=== PATIENT | female | born 1935 | race Caucasian/White ===

== ENCOUNTER 2016-09-13 22:25 | Inpatient (IN) | payer OTHER, MEDICARE ==
[~2016-09-13] VITALS: Ht 170.2 cm; Wt 91.6 kg
[~2016-09-13 22:25] MED LIST: TAB-TAB PO
[2016-09-13 22:45] VITALS: BP 185/97; PULSE 97; RESP 18; TEMP 98.9; O2SAT 97
[2016-09-13] MEDS ORDERED: SODIUM CHLORIDE 0.9% FLUSH 5 ML FLUSH IVF PRN (22:45)
--- NOTE | 2016-09-13 22:45 | PD ---
Physical Exam Time Seen by Provider: 22:41 Narrative I was asked to perform a laceration repair to this patient's scalp. For further details regarding the patient's visit please see the physician's documentation. MDM Supervised Visit with EJ: No Procedures Procedure Narrative LACERATION LOCATION: mid scalp LENGTH: 1 cm NUMBER OF STITCHES/CHAVA: 1 staple REPAIR: The wound was copiously irrigated and explored without evidence of foreign body, tendon injury or neurovascular injury. The wound was closed using 1 staple. This was a single layer repair. A sterile dressing was applied. The patient was advised to keep the dressing clean and dry. Patient tolerated the procedure well. Alexandrea Perkins Sep 13, 2016 22:45
[2016-09-13] MEDS ORDERED: MULT1TAB84 PO (22:50)
[2016-09-13 23:02] VITALS: RESP 18; O2SAT 91
--- NOTE | 2016-09-13 23:25 | PD ---
HPI Chief Complaint: Fall Time Seen by Provider: 22:40 Travel History International Travel<30 days: No Contact w/Intl Traveler<30days: No Traveled to known affect area: No History of Present Illness HPI 81-year-old female came to the emergency room brought by EMS after a fall and unable to ambulate. Patient has a med alert bracelet. She pushed the button after she fell. However patient does not remember how she fell. She has been drinking beer. As per EMS when they arrived they were unable to open her door. They had to enter the house through the window. They found the patient in the bathroom on the floor covered in feces. They put her on the stretcher and brought her to the emergency room. She was complaining of left wrist pain and they noticed a deformity. They splinted the wrist. She also had head injury and some dried blood in her hair. Patient lives alone at home. She has been complaining of the wrist hurting. She does not recall her last tetanus shot. [facility] Past Medical History Narrative Medical List of her past medical history as reviewed from the nursing note. Heart Rhythm Problems: No Cardiac Catheterization: No Cardiovascular Problems: No High Cholesterol: No Congestive Heart Failure: No Diabetes: No Diminished Hearing: No Hypertension: Yes ?: Not Tubal Ligation: Yes Past Surgical History Cholecystectomy: Yes Coronary Artery Bypass Graft: No Hysterectomy: Yes Family History Family Myocardial Infarction: Yes Social History Alcohol Use: Yes (1 beer per day) Tobacco Use: No (never) Substance Use: No Allergies-Medications (Allergen,Severity, Reaction): Coded Allergies: No Known Allergies (Verified , 09/13/16) Comments No known drug allergies. Reported Meds & Prescriptions Reported Meds & Active Scripts Active [place] (Hydrocodone-Acetaminophen) 5-325 mg Tab 1-2 Tab PO Q4H PRN Reported Multivitamin Adults (Multiple Vitamins W/ Minerals) 1 Tab 1 Tab PO DAILY Narrative Medication List of her home medications reviewed from the nursing note. Review of Systems Except as stated in HPI: all other systems reviewed are Neg Physical Exam Narrative GENERAL: Elderly, disheveled, obese, in moderate distress, extremely poor skin hygiene, covered in dry feces. SKIN: Warm and dry. HEAD: Atraumatic. Normocephalic. Scalp laceration 1 cm on the top of her head. EYES: Pupils equal and round. No scleral icterus. No injection or drainage. ENT: No nasal bleeding or discharge. Mucous membranes pink and moist. NECK: Trachea midline. No JVD. Patient has a c-collar. CARDIOVASCULAR: Regular rate and rhythm. No murmur appreciated. RESPIRATORY: No accessory muscle use. Clear to auscultation. Breath sounds equal bilaterally. GASTROINTESTINAL: Abdomen soft, non-tender, nondistended. Hepatic and splenic margins not palpable. MUSCULOSKELETAL: Left wrist deformity with hematoma. No clubbing. No cyanosis. No edema. Distal pulses intact NEUROLOGICAL: Awake and alert. No obvious cranial nerve deficits. Motor grossly within normal limits. Normal speech. PSYCHIATRIC: Appropriate mood and affect; insight and judgment normal. Data Data Last Documented VS Vital Signs Date Time Temp Pulse Resp B/P Pulse Ox O2 Delivery O2 Flow Rate FiO2 09/13/16 23:02 18 91 Room Air 09/13/16 22:45 98.9 97 185/97 Orders Electrocardiogram (09/13/16 22:40) Alcohol (Ethanol) (09/13/16 22:40) Ammonia (09/13/16 22:40) Complete Blood Count With Diff (09/13/16 22:40) Comprehensive Metabolic Panel (09/13/16 22:40) Creatine Kinase (Cpk) (09/13/16 22:40) Drug Screen, Random Urine (09/13/16 22:40) Prothrombin Time / Inr (Pt) (09/13/16 22:40) Troponin I (09/13/16 22:40) Thyroid Stimulating Hormone (09/13/16 22:40) Urinalysis - C+S If Indicated (09/13/16 22:40) Chest, Single Ap (09/13/16 22:40) Ct Brain W/O Iv Contrast(Rout) (09/13/16 22:40) Blood Glucose (09/13/16 22:40) Ecg Monitoring (09/13/16 22:40) Iv Access Insert/Monitor (09/13/16 22:40) Oximetry (09/13/16 22:40) Sodium Chloride 0.9% Flush (Ns Flush) (09/13/16 22:45) Forearm (2vws) (09/13/16 ) Wrist, Complete ([id number]) (09/13/16 ) Ct Cerv Spine W/O Contrast (09/13/16 ) Urine Culture (09/13/16 23:10) Morphine Inj (Morphine Inj) (09/14/16 00:45) Ondansetron Inj (Zofran Inj) (09/14/16 00:45) Tetanus/Diphtheria Tox Adult (Tetanus/Di (09/14/16 00:45) Splinting (09/14/16 ) Nitrofurantoin Monohyd Macrocr (Macrobid (09/14/16 00:45) NPO (09/14/16 01:07) Ceftriaxone Inj (Rocephin Inj) (09/14/16 01:15) Admit To Inpatient (09/14/16 ) Vital Signs (Adult) Q4H (09/14/16 01:03) Activity Oob With Assistance (09/14/16 01:03) Diet Npo (09/14/16 Breakfast) Sodium Chlor 0.9% 1000 Ml Inj (Ns 1000 M (09/14/16 01:03) Sodium Chloride 0.9% Flush (Ns Flush) (09/14/16 01:15) Sodium Chloride 0.9% Flush (Ns Flush) (09/14/16 09:00) Ondansetron Inj (Zofran Inj) (09/14/16 01:15) Bisacodyl Supp (Dulcolax Supp) (09/14/16 01:15) Comprehensive Metabolic Panel (09/15/16 06:00) Complete Blood Count With Diff (09/15/16 06:00) Case Management Consult (09/14/16 01:03) Scd Bilateral/Knee High CHAIM.BID (09/14/16 01:03) [place] Bilateral/Knee High CHAIM.QSHIFT (09/14/16 01:03) Acetaminophen (Tylenol) (09/14/16 01:15) Acetamin-Hydrocod 325-5 Mg ([place] 5-325 (09/14/16 01:15) Morphine Inj (Morphine Inj) (09/14/16 01:15) Inpatient Certification (09/14/16 ) Admit Order (Ed Use Only) (09/14/16 01:08) Lorazepam Inj (Ativan Inj) (09/14/16 01:15) Consult Orthopedic (09/14/16 ) Labs Laboratory Tests Test 2/10/2509/13/16 09/13/16 23:10 23:11 23:13 Urine Color LIGHT-YELLOW Urine Turbidity HAZY Urine pH 5.5 Urine Specific [place] 1.006 Urine Protein TRACE mg/dL Urine Glucose (UA) NEG mg/dL Urine Ketones NEG mg/dL Urine Occult Blood SMALL Urine Nitrite NEG Urine Bilirubin NEG Urine Urobilinogen LESS THAN 2.0 MG/DL Urine Leukocyte Esterase SMALL Urine WBC 3 /hpf Urine Squamous Epithelial 1 /hpf Cells Urine Amorphous Sediment OCC Urine Bacteria FEW /hpf Microscopic Urinalysis Comment CATH-CULTURE IND Urine Opiates Screen NEG Urine Barbiturates Screen NEG Urine Amphetamines Screen NEG Urine Benzodiazepines Screen NEG Urine Cocaine Screen NEG Urine Cannabinoids Screen NEG Prothrombin Time 10.8 SEC Prothromb Time International 1.0 RATIO Ratio White Blood Count 8.9 TH/MM3 Red Blood Count 3.81 MIL/MM3 Hemoglobin 12.5 GM/DL Hematocrit 36.7 % Mean Corpuscular Volume 96.4 FL Mean Corpuscular Hemoglobin 32.9 PG Mean Corpuscular Hemoglobin 34.1 % Concent Red Cell Distribution Width 13.5 % Platelet Count 138 TH/MM3 Mean Platelet Volume 8.7 FL Neutrophils (%) (Auto) 89.1 % Lymphocytes (%) (Auto) 5.8 % Monocytes (%) (Auto) 4.8 % Eosinophils (%) (Auto) 0.1 % Basophils (%) (Auto) 0.2 % Neutrophils # (Auto) 7.9 TH/MM3 Lymphocytes # (Auto) 0.5 TH/MM3 Monocytes # (Auto) 0.4 TH/MM3 Eosinophils # (Auto) 0.0 TH/MM3 Basophils # (Auto) 0.0 TH/MM3 CBC Comment DIFF FINAL Differential Comment Sodium Level 139 MEQ/L Potassium Level 3.5 MEQ/L Chloride Level 107 MEQ/L Carbon Dioxide Level 21.7 MEQ/L Anion Gap 10 MEQ/L Blood Urea Nitrogen 20 MG/DL Creatinine 1.40 MG/DL Estimat Glomerular Filtration 36 ML/MIN Rate Random Glucose 97 MG/DL Calcium Level 8.0 MG/DL Total Bilirubin 0.4 MG/DL Aspartate Amino Transf 25 U/L (AST/SGOT) Alanine Aminotransferase 22 U/L (ALT/SGPT) Alkaline Phosphatase 115 U/L Total Creatine Kinase 63 U/L Troponin I LESS THAN 0.02 NG/ML Total Protein 6.5 GM/DL Albumin 3.5 GM/DL Thyroid Stimulating Hormone 2.690 uIU/ML 3rd Gen Ethyl Alcohol Level 76 MG/DL Ammonia 13 MCMOL/L [facility] Medical Decision Making Medical Screen Exam Complete: Yes Emergency Medical Condition: Yes Medical Record Reviewed: Yes Interpretation(s) Twelve-lead EKG was reviewed by me. Normal sinus rhythm, left axis deviation, possible old inferior PA. Heart rate of 100 bpm. Differential Diagnosis Distal radius ulna fracture, electrolyte abnormalities, intracranial bleed, alcohol intoxication, Narrative Course 1 AM blood test results are back. Patient's alcohol level is high. Rest of the blood test results appear to be within normal limit. UA suggestive of possible UTI. I've given her a dose of Macrobid and tetanus. Head CT is within normal limit. I discussed the case with the hospitalist and expressed to her my concern of admitting this patient since she would require orthopedic surgery for her wrist given the 100% displacement. Also as per the EMS description I have concerns about this patient living on her own. That needs to be looked into as well. I spoke with Dr. Monteiro was top ironer for orthopedics. He wants the patient nothing by mouth so that a surgery can be performed in the morning. The [facility] is putting the splint on the fractured extremity. PA stapled the scalp under my supervision. Please refer to her procedure note. Procedures EKG Prior to Arrival: No Physician Communication Physician Communication Dr. Monteiro Diagnosis Primary Impression: Fall Qualified Code: W19.XXXA - Fall, initial encounter Additional Impressions: Closed fracture distal radius and ulna Qualified Code: S52.502A - Closed fracture distal radius and ulna, left, initial encounter Alcohol intoxication Qualified Code: F10.120 - Alcohol intoxication, uncomplicated UTI (urinary tract infection) Qualified Code: N39.0 - Urinary tract infection with hematuria, site unspecified Head injury Qualified Code: S09.90XA - Head injury, initial encounter Scalp laceration Qualified Code: S01.01XA - Scalp laceration, initial encounter Admitting Information Admitting Physician Requests: Admit Scripts Oxygen tank 1 Ea Tank #1 Liter Parminder.canula Continuous Oxygen Concentrator Portable Gaseous 2 L/min via Nasal Cannula Continuous For 99 months Prov:Aris Menezes MD 09/15/16 Thiamine (Vitamin B-1)100 Mg Ofl615 Mg PO DAILY 30 Days Prov:Aris Menezes MD 09/15/16 Cefuroxime (Ceftin)500 Mg Neg916 Mg PO BID #7 TAB Ref 0 Prov:Aris Menezes MD 09/15/16 Sennosides-Docusate Sodium (Senna Plus 8.6-50 mg)1 Tab Tab1 Tab PO BID #60 TAB Prov:Aris Menezes MD 09/15/16 Hydrocodone-Acetaminophen ([place])5-325 mg Tab1-2 Tab PO Q4H PRN (PAIN) #60 TAB Ref 0 Prov:Sergio Monteiro MD 09/14/16 Roland Braun MD Sep 13, 2016 23:25
[2016-09-13 23:29] LABS: AUTOMATED NEUTROPHIL # 7.9 TH/MM3 (1.8-7.7); BASOPHIL % 0.2 % (0.0-2.0); EOSINOPHIL % 0.1 % (0.0-4.0); HEMATOCRIT 36.7 % (35.0-46.0); HEMO FLAGS DIFF FINAL; LYMPH % 5.8 % (9.0-44.0); LYMPHOCYTE # 0.5 TH/MM3 (1.0-4.8); MEAN CELL VOLUME 96.4 FL (80.0-100.0); MEAN CORPUSCULAR HEMOGLOBIN 32.9 PG (27.0-34.0); MEAN CORPUSCULAR HGB CONC 34.1 % (32.0-36.0); MONO % 4.8 % (0.0-8.0); NEUT % 89.1 % (16.0-70.0); PLATELET COUNT 138 TH/MM3 (150-450); RED BLOOD COUNT 3.81 MIL/MM3 (4.00-5.30); RED CELL DISTRIBUTION WIDTH 13.5 % (11.6-17.2); WHITE BLOOD COUNT 8.9 TH/MM3 (4.0-11.0)
[2016-09-13 23:43] LABS: BACTERIA, URINE FEW /hpf; BLOOD, URINE SMALL (NEG); COMMENT (UR) CATH-CULTURE IND; CULTURE IF INDICATED CATH CULTURE IND; GLUCOSE,URINE NEG (NEG); KETONE, URINE NEG (NEG); NITRITE,URINE NEG (NEG); PH, URINE 5.5 (5.0-8.5); SQUAMOUS EPITHELIAL CELL URINE 1 /hpf (0-5); URINE COLOR LIGHT-YELLOW (YELLW/STRAW)
[2016-09-13 23:45] LABS: PROTHROMBIN TIME - PATIENT 10.8 SEC (9.8-11.6)
[2016-09-13 23:50] LABS: ALT (GPT) 22 U/L (10-53); ANION GAP 10 MEQ/L (5-15); AST (GOT) 25 U/L (15-37); BICARBONATE 21.7 MEQ/L (21.0-32.0); BLOOD UREA NITROGEN 20 MG/DL (7-18); CHLORIDE 107 MEQ/L (98-107); GLOMERULAR FILTRATION RATE 36 ML/MIN (>89); POTASSIUM 3.5 MEQ/L (3.5-5.1); SODIUM (NA) 139 MEQ/L (136-145)
[2016-09-13 23:54] LABS: AMPHETAMINE, URINE NEG (NEG); BARBITURATES, URINE NEG (NEG); COCAINE, URINE NEG (NEG)
[2016-09-14] VITALS (7 sets, daily range): BP systolic 136–187; BP diastolic 63–90; PULSE 79–105; RESP 16–19; TEMP 95.8–99.1; O2SAT 90–99
[2016-09-14] LABS: ALKALINE PHOSPHATASE 115 U/L (45-117); TOTAL BILIRUBIN ADULT 0.4 MG/DL (0.2-1.0)
[2016-09-14 00:02] LABS: CREATINE KINASE 63 U/L (26-192)
--- NOTE | 2016-09-14 00:25 | RADRPT ---
EXAM DATE/TIME: 09/13/2016 23:15 [facility] COMPARISON: CT BRAIN W/O CONTRAST, September 09, 2015, 23:41. INDICATIONS : Trauma; fall. RADIATION DOSE: 36.79 CTDIvol (mGy) MEDICAL HISTORY : None SURGICAL HISTORY : Cholecystectomy. Hysterectomy. ENCOUNTER: Initial ACUITY: 1 day PAIN SCALE: 6/10 LOCATION: cranial TECHNIQUE: Multiple contiguous axial images were obtained of the head. Using automated exposure control and adj ustment of the mA and/or kV according to patient size, radiation dose was kept as low as reasonably a chievable to obtain optimal diagnostic quality images. FINDINGS: CEREBRUM: There is mild cerebral atrophy. Ventricles are normal in size and stable. There is left frontal periv entricular region encephalomalacia along with mild periventricular white matter low attenuation bilat erally. No evidence of midline shift, mass lesion, hemorrhage or acute infarction. No extra-axial f luid collections are seen. POSTERIOR FOSSA: The cerebellum and brainstem are intact. The 4th ventricle is midline. The cerebellopontine angle i s unremarkable. EXTRACRANIAL: Visualized sinuses are clear. Scalp terry are present anteriorly. SKULL: The calvaria is intact. No evidence of skull fracture. CONCLUSION: 1. No acute intracranial abnormality is identified. 2. Stable chronic changes include mild cerebral atrophy and left frontal periventricular white matter encephalomalacia Bret Roblero MD on September 14, 2016 at 0:22 Board Certified Radiologist. This report was verified electronically.
--- NOTE | 2016-09-14 00:40 | RADRPT ---
EXAM DATE/TIME: 09/13/2016 23:36 [facility] COMPARISON: CHEST SINGLE AP, May 31, 2016, 0:23. INDICATIONS : Shortness of breath. MEDICAL HISTORY : Hypertension. Hypercholesterolemia. SURGICAL HISTORY : Cholecystectomy. Tubal ligation. ENCOUNTER: Initial ACUITY: 1 day PAIN SCORE: 0/10 LOCATION: Bilateral chest FINDINGS: Portable AP view of the chest demonstrates a normal-sized cardiac silhouette. No effusion, consolidat ion, or pneumothorax is visualized. The bones and soft tissues demonstrate no acute abnormality. CONCLUSION: No acute cardiopulmonary abnormality is identified. Bret Roblero MD on September 14, 2016 at 0:38 Board Certified Radiologist. This report was verified electronically.
[2016-09-14] MEDS ORDERED: MORPHINE SULFATE 4 MG/ML INJ IV PUSH ONE (00:45)
[2016-09-14] MEDS ORDERED: ONDANSETRON HCL 4 MG/2 ML VIAL IV PUSH ONE (00:45)
[2016-09-14] MEDS ORDERED: TETANUS/DIPHTHERIA TOXOID ADULT 0.5 ML VIAL IM ONE (00:45)
[2016-09-14] MEDS ORDERED: NITROFURANTOIN MONOHYD MACROCR 100 MG CAP PO ONE (00:45)
--- NOTE | 2016-09-14 00:56 | RADRPT ---
EXAM DATE/TIME: 09/13/2016 23:15 [facility] COMPARISON: No previous studies available for comparison. INDICATIONS : Trauma; fall. RADIATION DOSE: 18.10 CTDIvol (mGy) MEDICAL HISTORY : None SURGICAL HISTORY : Cholecystectomy. Hysterectomy. ENCOUNTER: Initial ACUITY: 1 day PAIN SCALE: 5/10 LOCATION: neck TECHNIQUE: Volumetric scanning of the cervical spine was performed. Multiplanar reconstructions in the sagittal, coronal and oblique axial planes were performed. Using automated exposure control and adjustment o f the mA and/or kV according to patient size, radiation dose was kept as low as reasonably achievable to obtain optimal diagnostic quality images. FINDINGS: There is normal sagittal spine alignment of the cervical spine. No anterolisthesis or retrolisthesis is present. The atlantoaxial relationship is within normal limits. There is no prevertebral soft tiss ue swelling present. No fracture or dislocation is identified. There is a small central disc protrusi on at C5-C6. The visualized portions of the posterior fossa, paraspinous soft tissues, and upper lung zones demons trate no acute abnormality. CONCLUSION: 1. No fracture or acute cervical spine abnormality is identified. 2. There is a small central disc protrusion of uncertain chronicity at C5-C6. It is not causing any s ignificant canal stenosis. Bret Roblero MD on September 14, 2016 at 0:51 Board Certified Radiologist. This report was verified electronically.
--- NOTE | 2016-09-14 00:57 | RADRPT ---
EXAM DATE/TIME: 09/13/2016 23:31 [facility] COMPARISON: No previous studies available for comparison. INDICATIONS : Left wrist pain from fall. MEDICAL HISTORY : None. SURGICAL HISTORY : None. ENCOUNTER: Initial ACUITY: 1 day PAIN SCORE: 10/10 LOCATION: Left wrist FINDINGS: 2 views of the left forearm demonstrate under mineralized bones with mildly comminuted transverse fra cture of the distal radial and ulnar metaphyses. There is lateral displacement of the distal fragment s by approximately 1/2 shaft width and there is mild shortening as well. No associated carpal bone fr acture is appreciated. There is adjacent soft tissue swelling. No radiopaque foreign body is identifi ed. CONCLUSION: There are displaced transverse fractures of the distal radius and ulna metaphyses. Bret Roblero MD on September 14, 2016 at 0:55 Board Certified Radiologist. This report was verified electronically.
--- NOTE | 2016-09-14 00:58 | RADRPT ---
EXAM DATE/TIME: 09/13/2016 23:33 [facility] COMPARISON: No previous studies available for comparison. INDICATIONS : Left wrist pain from a fall. MEDICAL HISTORY : Hypercholesterolemia. Hypertension. SURGICAL HISTORY : Cholecystectomy. Tubal ligation. Hysterectomy. ENCOUNTER: Initial ACUITY: 1 day PAIN SCORE: 10/10 LOCATION: Left wrist FINDINGS: 3 views of the left wrist demonstrate under mineralized bones. There are transverse fractures of the distal radius and ulna in the metaphyseal region with approximately 1/2 shaft width of lateral displa cement of the distal fragments. No carpal bone fracture is identified. There is associated soft tissu e swelling. No radiopaque foreign body is seen. CONCLUSION: There are acute transverse displaced fractures of the distal left ulna and radial metaphyses. Bret Roblero MD on September 14, 2016 at 0:56 Board Certified Radiologist. This report was verified electronically.
[2016-09-14] MEDS ORDERED: SODIUM CHLOR 0.9% 1000 ML INJ 1,000 ML IV SCH (01:03)
[2016-09-14] MEDS ORDERED: ACETAMINOPHEN 325 MG TAB PO PRN (01:15)
[2016-09-14] MEDS ORDERED: ACETAMINOPHEN/HYDROcodone 325 MG/5 MG TAB PO PRN ×2 (01:15→10:45)
[2016-09-14] MEDS ORDERED: LORazepam 2 MG/ML VIAL IV PUSH PRN (01:15)
[2016-09-14] MEDS ORDERED: SODIUM CHLORIDE 0.9% FLUSH 5 ML FLUSH FLUSH PRN (01:15)
[2016-09-14] MEDS ORDERED: ONDANSETRON HCL 4 MG/2 ML VIAL IVP PRN ×2 (01:15→10:45)
[2016-09-14] MEDS ORDERED: BISACODYL 10 MG SUPP PR PRN (01:15)
[2016-09-14] MEDS ORDERED: MORPHINE SULFATE 4 MG/ML INJ IV PRN (01:15)
[2016-09-14] MEDS: cefTRIAXone INJ 1,000 MG in SODIUM CHLORIDE 0.9% INJ 100 ML IV SCH (01:33)
[2016-09-14] MEDS ORDERED: METOPROLOL TARTRATE 5 MG/5 ML VIAL IV PUSH ONE (04:30)
--- NOTE | 2016-09-14 05:01 | HHI.HP ---
[facility] Michaela Goldstein MD Admission Diagnosis fall, head injury, distal radius ulna fracture, UTI Diagnoses: (1) Fall Diagnosis: Principal (2) Scalp laceration Diagnosis: Principal (3) Alcohol intoxication Diagnosis: Principal (4) Closed fracture distal radius and ulna Diagnosis: Principal (5) UTI (urinary tract infection) Diagnosis: Principal (6) Renal insufficiency Diagnosis: Principal Travel History International Travel<30 Days: No Contact w/Intl Traveler <30 Da: No Traveled to Known Affected Are: No History of Present Illness This is an 81-year-old female with a PMH of HTN and Hyperlipidemia who was brought to the ER by EMS after fall at home. Pt was apparently in the bathroom at her home and fell between the toilet and the wall, unable to get up. She pressed Medical Alert button at which time EMS was called. On their arrival, pt noted to have deformity of left wrist, s/p splint. On arrival to ER, BP 185/ 97, HR 97, O2 sat 97% on RA, Afebrile. CBC unremarkable except for platelets 138, previously 129 on 09/11/15. Creatinine 1.40, previously 1.49 on 05/31/16. Troponin negative. Alcohol 76. Urine Drug Screen negative. UA positive for UTI. CXR with no acute findings. CT Head with no acute findings. CT C-spine negative for fracture. X-ray Radius/Ulna w/ displaced transverse fractures of the distal radius ulna metaphyses. Noted to have scalp laceration, s/p repair in ER. Ortho consulted by ER physician for further evaluation. S/p Nitrofurantoin for UTI in ER. Review of Systems Other ROS: 14 point review of systems otherwise negative. Past Family Social History Past Medical History PMH: HTN and Hyperlipidemia Past Surgical History PAST SURGICAL HISTORY: Cholecystectomy, Hysterectomy Allergies: Coded Allergies: No Known Allergies (Verified , 09/13/16) Family History PAST FAMILY HISTORY: Reviewed, positive for CAD. Social History PAST SOCIAL HISTORY: Reports drinking one beer daily. Negative for tobacco or drugs. Physical Exam Vital Signs Vital Signs Date Time Temp Pulse Resp B/P Pulse Ox O2 Delivery O2 Flow Rate FiO2 09/14/16 02:00 94 16 174/88 96 Nasal Cannula 2 09/13/16 23:02 18 91 Room Air 09/13/16 22:45 98.9 97 18 185/97 97 Physical Exam PE: GENERAL: Elderly white female in no acute distress, disheveled, unkept. HEENT: PERRLA, EOMI. No scleral icterus or conjunctival pallor. No lid lag or facial droop. Scalp laceration CARDIOVASCULAR: Regular rate and rhythm. No obvious murmurs to auscultation. No chest tenderness to palpation. RESPIRATORY: No obvious rhonchi or wheezing. Clear to auscultation. Breath sounds equal bilaterally. GASTROINTESTINAL: Abdomen soft, non-tender, nondistended. BS normal. MUSCULOSKELETAL: Extremities without clubbing, cyanosis, or edema. No obvious deformities. Left wrist splint. Pulses intact. NEUROLOGICAL: Awake, alert. No focal neurologic deficits. Moving both upper and lower extremities spontaneously. Laboratory Laboratory Tests Test 09/13/16 09/13/16 09/13/16 23:10 23:11 23:13 Urine Color LIGHT-YELLOW Urine Turbidity HAZY Urine pH 5.5 Urine Specific [place] 1.006 Urine Protein TRACE Urine Glucose (UA) NEG Urine Ketones NEG Urine Occult Blood SMALL Urine Nitrite NEG Urine Bilirubin NEG Urine Urobilinogen LESS THAN 2.0 Urine Leukocyte Esterase SMALL Urine WBC 3 Urine Squamous Epithelial 1 Cells Urine Amorphous Sediment OCC Urine Bacteria FEW Microscopic Urinalysis Comment CATH-CULTURE IND Urine Opiates Screen NEG Urine Barbiturates Screen NEG Urine Amphetamines Screen NEG Urine Benzodiazepines Screen NEG Urine Cocaine Screen NEG Urine Cannabinoids Screen NEG White Blood Count 8.9 Red Blood Count 3.81 Hemoglobin 12.5 Hematocrit 36.7 Mean Corpuscular Volume 96.4 Mean Corpuscular Hemoglobin 32.9 Mean Corpuscular Hemoglobin 34.1 Concent Red Cell Distribution Width 13.5 Platelet Count 138 Mean Platelet Volume 8.7 Neutrophils (%) (Auto) 89.1 Lymphocytes (%) (Auto) 5.8 Monocytes (%) (Auto) 4.8 Eosinophils (%) (Auto) 0.1 Basophils (%) (Auto) 0.2 Neutrophils # (Auto) 7.9 Lymphocytes # (Auto) 0.5 Monocytes # (Auto) 0.4 Eosinophils # (Auto) 0.0 Basophils # (Auto) 0.0 CBC Comment DIFF FINAL Differential Comment Prothrombin Time 10.8 Prothromb Time International 1.0 Ratio Sodium Level 139 Potassium Level 3.5 Chloride Level 107 Carbon Dioxide Level 21.7 Anion Gap 10 Blood Urea Nitrogen 20 Creatinine 1.40 Estimat Glomerular Filtration 36 Rate Random Glucose 97 Calcium Level 8.0 Total Bilirubin 0.4 Aspartate Amino Transf 25 (AST/SGOT) Alanine Aminotransferase 22 (ALT/SGPT) Alkaline Phosphatase 115 Total Creatine Kinase 63 Troponin I LESS THAN 0.02 Total Protein 6.5 Albumin 3.5 Thyroid Stimulating Hormone 2.690 3rd Gen Ethyl Alcohol Level 76 Ammonia 13 Date/Time Procedure Status Source Growth 09/13/16 23:10 Urine Culture Received Urine Catheterized Urine Pending Result Diagram: 09/13/16231009/13/162310 Assessment and Plan Problem List: (1) Fall ICD Code: W19.XXXA Status: Acute (2) Scalp laceration ICD Code: S01.01XA Status: Acute (3) Closed fracture distal radius and ulna ICD Code: S52.609A Status: Acute (4) Alcohol intoxication ICD Code: F10.129 Status: Acute (5) Renal insufficiency ICD Code: N28.9 Status: Chronic (6) UTI (urinary tract infection) ICD Code: N39.0 Status: Acute Assessment and Plan A/P: 1. Fall: s/p mechanical fall at home in bathroom, no LOC, +head trauma. CT Head w/ no acute findings, CT C-Spine w/ no acute fracture, images reviewed by me. 2. Left Wrist Fx: +left wrist deformity, s/p splint by EMS, Left Wrist X-ray w / displaced transverse fractures of distal radius and ulnar metaphysis. Ortho consult placed by ER physician, NPO, IVF, analgesics/antiemetics. 3. Alcohol Intoxication: Alcohol level 76. Drinks 1 beer/day. IVF for hydration, Ativan prn. 4. Renal Insufficiency: Chronic. Stable. Creatinine 1.40, previously 1.49 on 05/31/16. IVF, repeat labs in am. 5. UTI: U/a w/ UTI. S/p Nitrofurantoin PO in ER, will continue w/ Rocephin IV. IVF. 6. DVT Prophylaxis: SCD/Teds. Anticoagulation post op per Ortho. 7. Social work for d/c planning as needed. 8. Case discussed w/ ER physician at length. Physician Certification 2 Midnight Certification Type: Admission for Inpatient Services Order for Inpatient Services The services are ordered in accordance with Medicare regulations or non- Medicare payer requirements, as applicable. In the case of services not specified as inpatient-only, they are appropriately provided as inpatient services in accordance with the 2-midnight benchmark. Estimated LOS (days): 2 days is the estimated time the patient will need to remain in the hospital, assuming treatment plan goals are met and no additional complications. Post-Hospital Plan: Not yet determined Problem Qualifiers (1) Fall: Qualified Code: W19.XXXA - Fall, initial encounter (2) Scalp laceration: Qualified Code: S01.01XA - Scalp laceration, initial encounter (3) Alcohol intoxication: Qualified Code: F10.120 - Alcohol intoxication, uncomplicated (4) Closed fracture distal radius and ulna: Qualified Code: S52.502A - Closed fracture distal radius and ulna, left, initial encounter (5) UTI (urinary tract infection): Qualified Code: N39.0 - Urinary tract infection with hematuria, site unspecified Tory Cortes MD Sep 14, 2016 05:01
[2016-09-14] MEDS ORDERED: INSULIN HUMAN REGULAR 1,000 UNITS/10 ML VIAL SQ PRN (08:45)
[2016-09-14] MEDS ORDERED: LACTATED RINGER'S 1000 ML IV SCH (08:45)
[2016-09-14] MEDS ORDERED: METOPROLOL TARTRATE 25 MG TAB PO PRN (08:45)
[2016-09-14] MEDS: SODIUM CHLORID 0.9% 500 ML IV SCH (08:45)
[2016-09-14] MEDS ORDERED: SODIUM CHLORIDE 0.9% FLUSH 5 ML FLUSH FLUSH SCH (09:00)
--- NOTE | 2016-09-14 09:05 | MB ---
cc: ALEJANDRO VASQUEZ DATE OF CONSULTATION: 09/14/2016 REASON FOR CONSULTATION Left wrist fracture. HISTORY OF PRESENT ILLNESS The patient is an 81-year-old female who presented to [facility] after having a fall at home. The patient was in her bathroom. She fell between the toilet and a wall. She was unable to get up. The patient was brought in by EMS given the nature of this. The patient upon arrival was found to have significantly displaced distal radius and distal ulnar fracture. The ER physician contacted me in the middle of the night. They said they were concerned about doing a closed reduction on the wrist. The patient was admitted for urgent management of this condition. The patient denies any numbness or tingling about the left upper extremity. She denies any problems with the wrist in the past. She had been splinted. PAST MEDICAL HISTORY 1. Hypertension. 2. Hyperlipidemia. REVIEW OF SYSTEMS A 12-point review of systems is negative except as noted in the history of present illness. FAMILY HISTORY Noncontributory. SOCIAL HISTORY 1. Cholecystectomy. 2. Hysterectomy. ALLERGIES No known drug allergies. PHYSICAL EXAMINATION VITAL SIGNS: Temperature 98.9, pulse 79, blood pressure 159/85. GENERAL: She is awake, alert and oriented x3. She has normal insight, affect and judgment. HEAD: The patient's head is atraumatic. Oropharynx is moist. Extraocular muscles are intact. NECK: Supple. HEART: Regular rate and rhythm. LUNGS: Clear to auscultation bilaterally. ABDOMEN: Soft, nontender, nondistended. BACK: No CVA tenderness. EXTREMITIES: The left upper extremity is currently splinted. She moves the fingers well. She has brisk capillary refill distally. The right upper extremity has good active range of motion of the shoulder, elbow and wrist. The bilateral lower extremities show no tenderness about the knees or the ankles. She has no wounds about the bilateral upper extremities. There is no bloody drainage on the left splint. LABORATORY Laboratory studies reviewed show a white cell count of 8.9, hematocrit 36.7, platelets 138. INR is 1.0. Creatinine 1.40. Urine shows some occult blood and small leukocyte esterase. Toxicology is negative. Ethyl alcohol was 76. IMAGING X-ray report and images reviewed, shows the patient has a comminuted left distal radius fracture which is extraarticular shortened, angulated and displaced. There is also a distal ulnar shaft fracture which is also comminuted and displaced to a significant degree. DECISION-MAKING Left distal radius fracture and distal ulnar shaft fracture angulated, displaced and comminuted: We discussed diagnosis in detail. This is a complex situation as nonoperative management would likely lead to significant dysfunction of the left arm and significant chronic deformity. She also may have chronic pain and/or weakness of the left wrist if left with nonoperative management. We discussed the option of surgical management for open reduction, internal fixation with plates and screws. This would be of the distal radius, possibly even the distal ulna. She may require both bones to fixed. It is possible we might be able to fix the distal radius and just perform a closed reduction on the distal ulna. We discussed the risks associated with surgery which include injury to nerves, blood vessels, bleeding, infection, failure of hardware, need for re-operation, continued pain, loss of range of motion in associated joints, DVT, pulmonary embolus, pneumonia and . The patient wants to move forward with surgical management for the left wrist. All questions have been answered. MD FOZIA Gordon/THEODORE /8:15 AM /8:53 AM
[2016-09-14] MEDS ORDERED: VANCOMYCIN HCL 1000 MG VIAL ONE (09:55)
[2016-09-14] MEDS ORDERED: GENTAMICIN SULFATE 80 MG/2 ML VIAL ONE ×2 (09:55)
[2016-09-14] MEDS ORDERED: ceFAZolin 2 GM PREMIX 50 ML ONE (09:55)
[2016-09-14] MEDS ORDERED: BUPIVACAINE/EPINEPHRINE 0.25% 50 ML VIAL INFIL ONE (10:34)
[2016-09-14] MEDS ORDERED: NORC5TAB PO (10:43)
[2016-09-14] MEDS ORDERED: NALOXONE HCL 0.4 MG/ML AMP IV PRN (10:45)
[2016-09-14] MEDS ORDERED: MORPHINE SULFATE 4 MG/ML INJ IV PUSH PRN (10:45)
[2016-09-14] MEDS ORDERED: Post-op Orders (for Pharmacy) MISC XX ONE (10:45)
[2016-09-14] MEDS ORDERED: diphenhydrAMINE HCL 25 MG CAP PO PRN (10:45)
[2016-09-14] MEDS ORDERED: MISCELLANEOUS NURSING INFORMATION XX PRN (10:45)
[2016-09-14] MEDS ORDERED: MISCELLANEOUS PHARMACY INFORMATION XX ONE (10:45)
[2016-09-14] MEDS ORDERED: SODIUM CHLORIDE 0.9% FLUSH 5 ML FLUSH IVF PRN (10:45)
[2016-09-14] MEDS ORDERED: MAGNESIUM HYDROXIDE SUSP 30 ML CUP PO PRN (10:45)
--- NOTE | 2016-09-14 10:53 | PD.OP ---
cc: Sergio Monteiro MD Operative Report Date of Surgery: Sep 14, 2016 Preoperative Diagnosis: Left distal radius, extra articular fracture displaced. Left distal ulnar shaft fracture displaced. Postoperative Diagnosis: Same Procedure: Left distal radius fracture extra-articular open reduction and internal fixation. Left distal ulnar shaft fracture closed reduction. Anesthesia: Gen. Surgeon: Sergio Monteiro Coal Hauler(s): JOSIAS Weldon The surgical procedure was assisted by my Advanced Registered Nurse Practitioner. My FINANCIAL SERVICES REP presence was necessary throughout this case for the manipulation and positioning of the surgical extremity. My FINANCIAL SERVICES REP was assisting me throughout the duration of this procedure. The skill set of an Advance Registered Nurse Practitioner was medically necessary to complete this procedure. During the surgical case, the surveying or spatial science technician was working at the back table and the Advance Registered Nurse Practitioner was directly assisting me. Operation and Findings: Tourniquet time: 20 minutes at 250 mmHg of pressure Estimated blood loss: 5 cc The patient received intravenous vancomycin and Ancef. After the appropriate anesthesia was administered, the patient's arm was prepped and draped in the usual sterile fashion. Local anesthetic was given, and the arm was exsanguinated. The tourniquet was raised to 250 mmHg of pressure. We made a standard incision over the volar aspect of the forearm. We then dissected through the flexor carpi radialis sub- sheath. The pronator quadratus was reflected. We now visualized the distal radius fracture very well. The fracture was anatomically reduced both visually and via fluoroscopy. We reduced the distal ulnar shaft fracture as well. On the AP view it was mildly displaced with minimal angulation. On the lateral view it was essentially anatomic. We provisionally held the distal radius fracture reduced and then applied a Synthes precontoured distal radius plate into the appropriate position. The plate was secured to the distal radius first with the sliding screw hole. This was then followed by locking screws distally and proximally. We took final fluoroscopic imaging of the wrist. We found no intra-articular penetration of the screws. The patient had full range of motion of the wrist with no crepitus. The distal ulnar shaft fracture remained in good position now that the distal radius fracture was stabilized. The tourniquet was released and hemostasis was achieved. The patient had a 2+ radial pulse. We irrigated the incision thoroughly. We then closed skin with 2 -0 Vicryl followed by 3-0 nylon. The arm was dressed and a sugar tong splint was applied. The postoperative plan is to start delayed range of motion of the wrist. Sergio Monteiro MD Sep 14, 2016 10:53
[2016-09-14] MEDS ORDERED: DO NOT ADM ANY ANTICOAGULANT DRUGS XX PRN (11:04)
[2016-09-14] MEDS ORDERED: MIDAZOLAM HCL 2 MG/2 ML VIAL ONE (11:10)
[2016-09-14] MEDS ORDERED: fentaNYL CITRATE 250 MCG/5 ML AMP ONE (11:11)
[2016-09-14] MEDS ORDERED: PHENYLEPH/NS 1000 MCG/10 ML SYR IV ONE (12:00)
[2016-09-14] MEDS ORDERED: PROPOFOL 200 MG/20 ML AMP IV ONE (12:00)
[2016-09-14] MEDS ORDERED: LACTATED RINGER'S 1000 ML INJ 1,000 ML IV ONE (12:00)
[2016-09-14] MEDS ORDERED: ePHEDrine/NS 25 MG/5 ML SYR IV ONE (12:00)
[2016-09-14] MEDS ORDERED: DEXT 5%-NACL 0.45% 1000 ML INJ 1,000 ML IV SCH (12:00)
--- NOTE | 2016-09-14 13:02 | RADRPT ---
EXAM DATE/TIME: 09/14/2016 10:32 [facility] COMPARISON: WRIST LEFT COMPLETE ([id number]), September 13, 2016, 23:33. INDICATIONS : Open reduction. MEDICAL HISTORY : None. SURGICAL HISTORY : None. ENCOUNTER: Subsequent ACUITY: 2 days PAIN SCORE: Non-responsive. LOCATION: Left upper extremity CONCLUSION: Fluoroscopic images during placement of T-shaped plate along the distal radius fixing fracture. Dista l ulnar fracture slightly displaced. Monty Delgado MD on September 14, 2016 at 13:00 Board Certified Radiologist. This report was verified electronically.
[2016-09-14] MEDS: SODIUM CHLORIDE 0.9% FLUSH 5 ML FLUSH IVF SCH (21:00)
[2016-09-14] MEDS: ACETAMINOPHEN/HYDROcodone 325 MG/5 MG TAB PO PRN (21:15)
[2016-09-14] MEDS: DOCUSATE SODIUM 50 MG/SENNA 8.6 MG TAB PO SCH (21:15)
[2016-09-15] VITALS (7 sets, daily range): BP systolic 135–180; BP diastolic 69–89; PULSE 92–108; RESP 18–19; TEMP 96.3–98.3; O2SAT 91–98
[2016-09-15] MEDS: SODIUM CHLORID 0.9% 500 ML IV SCH (01:25)
[2016-09-15] MEDS: cefTRIAXone INJ 1,000 MG in SODIUM CHLORIDE 0.9% INJ 100 ML IV SCH (01:29)
--- NOTE | 2016-09-15 07:38 | PD.ORT.PN ---
Subjective Post Op Day #: 1 Subjective Remarks Patient is OOB in chair with moderate left wrist pain. Patient is ambulatory. Objective Vitals Vital Signs Date Time Temp Pulse Resp B/P Pulse Ox O2 Delivery O2 Flow Rate FiO2 09/15/16 04:05 96.3 99 19 146/69 91 09/14/16 23:50 97.3 91 16 139/69 95 09/14/16 20:37 Nasal Cannula 2.50 09/14/16 20:20 99.1 105 19 149/69 92 09/14/16 19:58 Nasal Cannula 2.00 09/14/16 16:04 96.4 92 17 136/63 90 09/14/16 11:51 95.8 79 17 163/75 99 09/14/16 11:30 97 14 150/85 98 Nasal Cannula 2 09/14/16 11:15 80 14 155/86 98 Nasal Cannula 2 09/14/16 11:00 98.0 91 14 165/98 97 Nasal Cannula 2 09/14/16 08:01 96.3 96 18 187/90 98 I/O 09/14/16 09/14/16 09/14/16 09/15/16 09/15/16 09/15/16 07:00 15:00 23:00 07:00 15:00 23:00 Intake Total 540 ml 480 ml 240 ml Output Total 25 ml Balance 515 ml 480 ml 240 ml Intake Oral 240 ml 480 ml 240 ml Other 300 ml Output Estimated Blood Loss 25 ml # Voids 3 2 3 # Bowel Movements 0 0 0 Result Diagram: 09/13/16 2311 09/13/16 2311 Procedures Left distal radius fracture extra-articular open reduction and internal fixation. Left distal ulnar shaft fracture closed reduction. Objective Remarks Splint and dressing is dry and intact. Patient moves all fingers and thumb. + SILT. Minimal swelling to the fingers. Sling in place. Assessment & Plan Ortho Post Op Day #: 1 Problem List: Assessment and Plan POD #1: Left distal radius fracture extra-articular open reduction and internal fixation. Left distal ulnar shaft fracture closed reduction. 1. Maintain splint and sling. 2. NWB LUE 3. Ice to the left wrist PRN 4. Stable per ortho for discharge home vs. SNF once medically cleared. Naveen Kwok Sep 15, 2016 07:38
[2016-09-15] MEDS: ACETAMINOPHEN/HYDROcodone 325 MG/5 MG TAB PO PRN ×2 (07:49→16:07)
[2016-09-15] MEDS: DOCUSATE SODIUM 50 MG/SENNA 8.6 MG TAB PO SCH ×2 (07:50→20:26)
[2016-09-15] MEDS: MULTIVITAMINS/MINERALS THERAPEUTIC TAB PO SCH (07:50)
[2016-09-15] MEDS ORDERED: CEFT500T3 PO (07:56)
[2016-09-15] MEDS ORDERED: SENN1TAB PO (07:56)
--- NOTE | 2016-09-15 07:56 | HHI.DCPOC ---
Discharge Care Plan Diagnosis: (1) Scalp laceration (2) Closed fracture distal radius and ulna Your Health Problems Are: Difficulty with ADL Exercise Tolerance Chronic Pain Goals to Promote Your Health * To prevent worsening of your condition and complications * To maintain your health at the optimal level Directions to Meet Your Goals Take your medications as prescribed Follow your dietary instruction Follow activity as directed Keep your appointments as scheduled Take your immunizations and boosters as scheduled If your symptoms worsen call your PCP, if no PCP go to Urgent Care Center or Emergency Room Smoking is Dangerous to Your Health. Avoid second hand smoke Call the 24-hour hour crisis hotline for domestic abuse at Aris Menezes MD Sep 15, 2016 07:56
--- NOTE | 2016-09-15 07:57 | HHI.FF ---
Face to Face Verification Diagnosis: (1) Scalp laceration (2) Closed fracture distal radius and ulna (3) Fall Physical Therapy Order: Evaluate and Treat, Improve ambulation, Strength and gait training I have seen patient Ruma Berrios on 09/15/16. My clinical findings support the need for the requested home health care services because: Ltd mobility - disease progression Deconditioned w/ increased weakness I certify that my clinical findings support that this patient is homebound because: Unsafe to leave home unassisted Need for psychosocial assistance Aris Menezes MD Sep 15, 2016 07:57
[2016-09-15 08:06] LABS: AUTOMATED NEUTROPHIL # 5.4 TH/MM3 (1.8-7.7); BASOPHIL % 0.1 % (0.0-2.0); EOSINOPHIL % 0.6 % (0.0-4.0); HEMO FLAGS DIFF FINAL; LYMPH % 8.7 % (9.0-44.0); LYMPHOCYTE # 0.6 TH/MM3 (1.0-4.8); MEAN CELL VOLUME 96.4 FL (80.0-100.0); MEAN CORPUSCULAR HEMOGLOBIN 33.1 PG (27.0-34.0); MEAN CORPUSCULAR HGB CONC 34.3 % (32.0-36.0); MONO % 9.3 % (0.0-8.0); NEUT % 81.3 % (16.0-70.0); PLATELET COUNT 121 TH/MM3 (150-450); RED BLOOD COUNT 3.53 MIL/MM3 (4.00-5.30); RED CELL DISTRIBUTION WIDTH 13.5 % (11.6-17.2); WHITE BLOOD COUNT 6.7 TH/MM3 (4.0-11.0)
[2016-09-15 08:32] LABS: ANION GAP 7 MEQ/L (5-15); AST (GOT) 46 U/L (15-37); BICARBONATE 27.3 MEQ/L (21.0-32.0); BLOOD UREA NITROGEN 16 MG/DL (7-18); CHLORIDE 109 MEQ/L (98-107); GLOMERULAR FILTRATION RATE 36 ML/MIN (>89); POTASSIUM 3.8 MEQ/L (3.5-5.1); SODIUM (NA) 143 MEQ/L (136-145)
[2016-09-15 08:35] LABS: ALKALINE PHOSPHATASE 131 U/L (45-117); ALT (GPT) 27 U/L (10-53); TOTAL BILIRUBIN ADULT 0.5 MG/DL (0.2-1.0)
--- NOTE | 2016-09-15 09:08 | HHI.PR ---
Subjective Remarks F/U left wrist injury. Pain tolerable no tingling or numbness. Hypoxic denies SOB and hx lung or heart dse. Chronic BLE swelling dw RN, unsteady on her feet agrees with rehab Objective Vitals Vital Signs Date Time Temp Pulse Resp B/P Pulse Ox O2 Delivery O2 Flow Rate FiO2 09/15/16 08:00 Nasal Cannula 2.00 09/15/16 04:05 96.3 99 19 146/69 91 09/14/16 23:50 97.3 91 16 139/69 95 09/14/16 20:37 Nasal Cannula 2.50 09/14/16 20:20 99.1 105 19 149/69 92 09/14/16 19:58 Nasal Cannula 2.00 09/14/16 16:04 96.4 92 17 136/63 90 09/14/16 11:51 95.8 79 17 163/75 99 09/14/16 11:30 97 14 150/85 98 Nasal Cannula 2 09/14/16 11:15 80 14 155/86 98 Nasal Cannula 2 09/14/16 11:00 98.0 91 14 165/98 97 Nasal Cannula 2 I/O 09/14/16 09/14/16 09/14/16 09/15/16 09/15/16 09/15/16 07:00 15:00 23:00 07:00 15:00 23:00 Intake Total 540 ml 480 ml 240 ml Output Total 25 ml Balance 515 ml 480 ml 240 ml Intake Oral 240 ml 480 ml 240 ml Other 300 ml Output Estimated Blood Loss 25 ml # Voids 3 2 3 # Bowel Movements 0 0 0 Result Diagram: 09/15/16 0716 09/15/16 0716 Imaging Last Impressions Wrist X-Ray 09/14/16 0000 Signed Impressions: Service Date/Time: Wednesday, September 14, 2016 10:32 - CONCLUSION: Fluoroscopic images during placement of T-shaped plate along the distal radius fixing fracture. Distal ulnar fracture slightly displaced. Monty Delgado MD Head CT [id number]/13/[id number] Signed Impressions: Service Date/Time: Tuesday, September 13, 2016 23:15 - CONCLUSION: 1. No acute intracranial abnormality is identified. 2. Stable chronic changes include mild cerebral atrophy and left frontal periventricular white matter encephalomalacia Bret Roblero MD Chest X-Ray 2/3/17 2240 Signed Impressions: Service Date/Time: Tuesday, September 13, 2016 23:36 - CONCLUSION: No acute cardiopulmonary abnormality is identified. Bret Roblero MD Radius/Ulna X-Ray 09/13/16 0000 Signed Impressions: Service Date/Time: Tuesday, September 13, 2016 23:31 - CONCLUSION: There are displaced transverse fractures of the distal radius and ulna metaphyses. Bret Roblero MD Cervical Spine CT 09/13/16 0000 Signed Impressions: Service Date/Time: Tuesday, September 13, 2016 23:15 - CONCLUSION: 1. No fracture or acute cervical spine abnormality is identified. 2. There is a small central disc protrusion of uncertain chronicity at C5-C6. It is not causing any significant canal stenosis. Bret Roblero MD Objective Remarks GENERAL: Elderly white female in no acute distress HEENT: PERRLA, EOMI. No scleral icterus or conjunctival pallor. No lid lag or facial droop. Parietal Scalp laceration s/p repair CARDIOVASCULAR: Regular rate and rhythm. No obvious murmurs to auscultation. No chest tenderness to palpation. RESPIRATORY: No obvious rhonchi or wheezing. Decreased Clear to auscultation. Breath sounds equal bilaterally. GASTROINTESTINAL: Abdomen soft, non-tender, nondistended. BS normal. MUSCULOSKELETAL: Extremities without clubbing, cyanosis but with BLE pitting edema. No obvious deformities. Left wrist splint. Pulses intact. NEUROLOGICAL: Awake, alert. No focal neurologic deficits. Moving both upper and lower extremities spontaneously. Procedures CR left ulna and ORIF left radius A/P Problem List: (1) Fall ICD Code: W19.XXXA Status: Acute (2) Scalp laceration ICD Code: S01.01XA Status: Acute (3) Closed fracture distal radius and ulna ICD Code: S52.609A Status: Acute (4) Alcohol intoxication ICD Code: F10.129 Status: Acute (5) Renal insufficiency ICD Code: N28.9 Status: Chronic (6) UTI (urinary tract infection) ICD Code: N39.0 Status: Acute Assessment and Plan 1. Fall: s/p mechanical fall at home in bathroom, no LOC, +head trauma. CT Head w/ no acute findings, CT C-Spine w/ no acute fracture, images reviewed by me. 2. Left Wrist Fx: +left wrist deformity, s/p splint by EMS, Left Wrist X-ray w / displaced transverse fractures of distal radius and ulnar metaphysis. Ortho consult placed by ER physician, s/p CR left ulna and ORIF left radius. Stable ct pain mgt 3. Alcohol Intoxication: Alcohol level 76. Drinks 1 beer/day. IVF for hydration, Ativan prn. CIWA protocol 4. CKD: Chronic. Stable. Creatinine 1.40, previously 1.49 on 05/31/16. IVF , repeat labs in am. 5. UTI: U/a w/ UTI. S/p Nitrofurantoin PO in ER, will continue w/ Rocephin IV. IVF. F/u ucx 6. Hypoxia with BLE edema. Initial CXR negative. Check BNP and do walk test. IS DVT Prophylaxis: SCD/Teds. Anticoagulation post op per Ortho. 1451 Elevated BNP. Rpt CXR, check ECHO. IVF already dc. Consider lasix Discharge Planning Possible dc to SNF vs home with [facility] PT Condition on discharge: Improved Regular Diet as tolerated Ad Kiera activity no driving and NWB LUE Rx written: ceftin, lortab, pericolace and thiamine Follow-up with primary care physician in 3 days ortho in 2 weeks F/U pending repeat CXR and ECHO Problem Qualifiers (1) Fall: Qualified Code: W19.XXXA - Fall, initial encounter (2) Scalp laceration: Qualified Code: S01.01XA - Scalp laceration, initial encounter (3) Closed fracture distal radius and ulna: Qualified Code: S52.502A - Closed fracture distal radius and ulna, left, initial encounter (4) Alcohol intoxication: Qualified Code: F10.120 - Alcohol intoxication, uncomplicated (5) UTI (urinary tract infection): Qualified Code: N39.0 - Urinary tract infection with hematuria, site unspecified Aris Menezes MD Sep 15, 2016 09:08
[2016-09-15] MEDS ORDERED: LORazepam 2 MG/ML VIAL IV PUSH PRN ×4 (09:15)
[2016-09-15] MEDS ORDERED: OXYGENTANK NAS.CANULA (09:17)
[2016-09-15] MEDS ORDERED: VITA100T2 PO (09:17)
[2016-09-15] MEDS: SODIUM CHLORIDE 0.9% FLUSH 5 ML FLUSH IVF SCH ×2 (09:22→20:26)
[2016-09-15] MEDS ORDERED: FLUMAZENIL 0.5 MG/5 ML VIAL IV PUSH PRN (09:30)
[2016-09-15] MEDS ORDERED: LORazepam 2 MG TAB PO PRN (09:30)
[2016-09-15] MEDS ORDERED: HALOPERIDOL LACTATE 5 MG/ML AMP IM PRN (09:30)
[2016-09-15] MEDS ORDERED: LORazepam 1 MG TAB PO PRN (09:30)
[2016-09-15] MEDS ORDERED: RESP: ALBUTEROL 0.63 MG/3 ML NEB (PRN) NEB (12:00)
--- NOTE | 2016-09-15 12:38 | EKG ---
Date Performed: 09/14/2016 Time Performed: 00:25:20 PTAGE: 81 years EKG: Sinus rhythm MARKED LEFT AXIS DEVIATION SEPTAL MYOCARDIAL INFARCTION Since previous tracing, no significant forde e noted ABNORMAL ECG PREVIOUS TRACING : 05/31/2016 08.03.04 DOCTOR: Erica Prabhakar Interpretating Date/Time 09/15/2016 12:36:53
--- NOTE | 2016-09-15 18:06 | RADRPT ---
EXAM DATE/TIME: 09/15/2016 16:53 [facility] COMPARISON: CHEST SINGLE AP, September 13, 2016, 23:36. INDICATIONS : Evaluate for congestive heart failure. MEDICAL HISTORY : Hypertension. SURGICAL HISTORY : None. ENCOUNTER: Initial ACUITY: 1 day PAIN SCORE: 2/10 LOCATION: Bilateral chest FINDINGS: There is minimal basilar dependent atelectasis. No effusion. No pneumothorax. Heart size mildly enlar ged. CONCLUSION: 1. Minimal basilar dependent atelectasis. No effusion or pneumothorax. Zachary Ronquillo MD on September 15, 2016 at 18:03 Board Certified Radiologist. This report was verified electronically.
[2016-09-15] MEDS ORDERED: FUROSEMIDE 20 MG/2 ML VIAL IV PUSH ONE (21:15)
[2016-09-15] MEDS: CEFUROXIME AXETIL 250 MG TAB PO SCH (22:01)
[2016-09-16 00:15] VITALS: BP 182/84; PULSE 95; RESP 18; TEMP 97.5; O2SAT 93
[2016-09-16 04:56] LABS: BICARBONATE 29.4 MEQ/L (21.0-32.0); MAGNESIUM 2.2 MG/DL (1.5-2.5); POTASSIUM 3.2 MEQ/L (3.5-5.1)
[2016-09-16 08:00] VITALS: BP 167/90; PULSE 97; RESP 18; TEMP 98.6; O2SAT 96
[2016-09-16] MEDS ORDERED: FOLIC ACID 1 MG TAB PO SCH (09:00)
[2016-09-16] MEDS ORDERED: MULTIVITAMINS/MINERALS THERAPEUTIC TAB PO SCH (09:00)
[2016-09-16] MEDS ORDERED: THIAMINE HCL 100 MG TAB PO SCH (09:00)
[2016-09-16] MEDS: CEFUROXIME AXETIL 250 MG TAB PO SCH (09:15)
[2016-09-16] MEDS: MULTIVITAMINS/MINERALS THERAPEUTIC TAB PO SCH (09:15)
[2016-09-16] MEDS: DOCUSATE SODIUM 50 MG/SENNA 8.6 MG TAB PO SCH (09:15)
[2016-09-16] MEDS: SODIUM CHLORIDE 0.9% FLUSH 5 ML FLUSH IVF SCH (09:16)
--- NOTE | 2016-09-16 10:31 | HHI.PR ---
Subjective Remarks 81 years old right handed female no pain complaints Objective Vitals Vital Signs Date Time Temp Pulse Resp B/P Pulse Ox O2 Delivery O2 Flow Rate FiO2 09/16/16 00:15 97.5 95 18 182/84 93 09/15/16 20:10 98.3 96 18 158/78 92 09/15/16 20:04 21 09/15/16 17:07 18 09/15/16 16:00 96.4 106 19 178/82 93 09/15/16 15:00 92 09/15/16 12:00 96.6 92 19 135/78 96 09/15/16 11:15 98 Nasal Cannula 2.00 I/O 09/15/16 09/15/16 09/15/16 09/16/16 09/16/16 09/16/16 06:59 14:59 22:59 06:59 14:59 22:59 Intake Total 240 ml 720 ml 584 ml 240 ml Balance 240 ml 720 ml 584 ml 240 ml Intake Oral 240 ml 720 ml 480 ml 240 ml IV Total 104 ml # Voids 3 3 3 4 # Bowel Movements 0 0 0 0 Result Diagram: 09/15/16 0716 09/16/16 0407 Imaging Last Impressions Chest X-Ray 09/15/16 0000 Signed Impressions: Service Date/Time: Thursday, September 15, 2016 16:53 - CONCLUSION: 1. Minimal basilar dependent atelectasis. No effusion or pneumothorax. Zachary Ronquillo MD Wrist X-Ray 09/14/16 0000 Signed Impressions: Service Date/Time: Wednesday, September 14, 2016 10:32 - CONCLUSION: Fluoroscopic images during placement of T-shaped plate along the distal radius fixing fracture. Distal ulnar fracture slightly displaced. Monty Delgado MD Head CT 09/13/16 2240 Signed Impressions: Service Date/Time: Tuesday, September 13, 2016 23:15 - CONCLUSION: 1. No acute intracranial abnormality is identified. 2. Stable chronic changes include mild cerebral atrophy and left frontal periventricular white matter encephalomalacia Bret Roblero MD Radius/Ulna X-Ray 09/13/16 0000 Signed Impressions: Service Date/Time: Tuesday, September 13, 2016 23:31 - CONCLUSION: There are displaced transverse fractures of the distal radius and ulna metaphyses. Bret Roblero MD Cervical Spine CT 09/13/16 0000 Signed Impressions: Service Date/Time: Tuesday, September 13, 2016 23:15 - CONCLUSION: 1. No fracture or acute cervical spine abnormality is identified. 2. There is a small central disc protrusion of uncertain chronicity at C5-C6. It is not causing any significant canal stenosis. Bret Roblero MD Objective Remarks awake and alert, oriented x 3, speech clear anicteric no bruit lungs clear regular rhythm abdomen soft nontender LUE- S/S in place LE - no edema neuro exam- non focal Procedures ORIF- left radial fracture, close reduction left distal ulnar fracture A/P Problem List: (1) Fall ICD Code: W19.XXXA Status: Acute (2) Scalp laceration ICD Code: S01.01XA Status: Acute (3) Closed fracture distal radius and ulna ICD Code: S52.609A Status: Acute (4) Alcohol intoxication ICD Code: F10.129 Status: Acute (5) Renal insufficiency ICD Code: N28.9 Status: Chronic (6) UTI (urinary tract infection) ICD Code: N39.0 Status: Acute Assessment and Plan 1. Fall: s/p mechanical fall at home in bathroom, no LOC, +head trauma. CT Head w/ no acute findings, CT C-Spine w/ no acute fracture, images reviewed by me. 2. S/P ORIF left radial fracture, close reduction left distal ulnar fracture 2/ 5 NWB LUE, prn pain meds 3. Alcohol Intoxication: Alcohol level 76. Drinks 1 beer/day. IVF for hydration, Ativan prn. CIWA protocol 4. CKD: Chronic. Stable. Creatinine 1.40, previously 1.49 on 05/31/16. I Hypokalemia- replace with po KCL 5. UTI: - E coli on Ceftin course 6. Hypoxia with BLE edema. Initial CXR negative. Check BNP and do walk test. IS DVT Prophylaxis: SCD/Teds. Anticoagulation post op per Ortho. 1451 Elevated BNP. Rpt CXR, check ECHO. IVF already dc. Consider lasix Discharge Planning Possible dc to SNF vs home with [facility] PT Condition on discharge: Improved Regular Diet as tolerated Ad Kiera activity no driving and NWB LUE Rx written: ceftin, lortab, pericolace and thiamine Follow-up with primary care physician in 3 days ortho in 2 weeks F/U pending repeat CXR and ECHO Problem Qualifiers (1) Fall: Qualified Code: W19.XXXA - Fall, initial encounter (2) Scalp laceration: Qualified Code: S01.01XA - Scalp laceration, initial encounter (3) Closed fracture distal radius and ulna: Qualified Code: S52.502A - Closed fracture distal radius and ulna, left, initial encounter (4) Alcohol intoxication: Qualified Code: F10.120 - Alcohol intoxication, uncomplicated (5) UTI (urinary tract infection): Qualified Code: N39.0 - Urinary tract infection with hematuria, site unspecified Bree Frank MD Sep 16, 2016 09:54 Bree Frank MD Sep 16, 2016 09:54
[2016-09-16 12:00] VITALS: BP 116/72; PULSE 103; RESP 18; TEMP 97.8; O2SAT 98
--- NOTE | 2016-09-16 12:49 | PD.ORT.PN ---
Subjective Post Op Day #: 2 Subjective Remarks Patient is OOB in chair with mild left wrist pain. Patient is ambulatory. Objective Vitals Vital Signs Date Time Temp Pulse Resp B/P Pulse Ox O2 Delivery O2 Flow Rate FiO2 09/16/16 08:00 98.6 97 18 167/90 96 09/16/16 00:15 97.5 95 18 182/84 93 09/15/16 20:10 98.3 96 18 158/78 92 09/15/16 20:04 21 09/15/16 17:07 18 09/15/16 16:00 96.4 106 19 178/82 93 09/15/16 15:00 92 I/O 09/15/16 09/15/16 09/15/16 09/16/16 09/16/16 09/16/16 07:00 15:00 23:00 07:00 15:00 23:00 Intake Total 240 ml 720 ml 584 ml 240 ml Balance 240 ml 720 ml 584 ml 240 ml Intake Oral 240 ml 720 ml 480 ml 240 ml IV Total 104 ml # Voids 3 3 3 4 # Bowel Movements 0 0 0 0 Result Diagram: 09/15/16 0716 09/16/16 0407 Procedures Left distal radius fracture extra-articular open reduction and internal fixation. Left distal ulnar shaft fracture closed reduction. Objective Remarks Splint and dressing is dry and intact. Patient moves all fingers and thumb. + SILT. Minimal swelling to the fingers. Sling in place. Assessment & Plan Ortho Post Op Day #: 2 Problem List: Assessment and Plan POD #2: Left distal radius fracture extra-articular open reduction and internal fixation. Left distal ulnar shaft fracture closed reduction. 1. Maintain splint and sling. 2. NWB LUE 3. Ice to the left wrist PRN 4. Stable per ortho for discharge to [facility] today. 5. F/U with Dr. Monteiro in 1-2 weeks. Naveen Kwok Sep 16, 2016 12:49
--- NOTE | 2016-09-16 19:02 | EC ---
Study Study Date:09/16/2016 STUDY CONCLUSIONS SUMMARY - Left ventricle: The cavity size was normal. Wall thickness was normal. Systolic function was normal. The estimated ejection fraction was 55%, in the range of 50% to 55%. Regional wall motion abnormalities cannot be excluded. - Aortic valve: Valve area: 1.83cm^2 (Vmax). - Mitral valve: Mildly calcified annulus. Mild regurgitation. - Left atrium: The atrium was mildly to moderately dilated. - Tricuspid valve: Mild-moderate regurgitation. - Pulmonary arteries: PA peak pressure: 32mm Hg (S). If LV function is below 40, please consider prescribing an ACEI or ARB or document rationale for non-use. PROCEDURE DATA STUDY STATUS: Elective. Procedure: Transthoracic echocardiography. Image quality was good. Scanning was performed from the parasternal, apical, and subcostal acoustic windows. Study completion: The patient tolerated the procedure well. Transthoracic echocardiography. M-mode, complete 2D, complete spectral Doppler, and color Doppler. Height: Height: 67in. Weight: Weight: 197.6lb. Body mass index: BMI: 31kg/m^2. Body surface area: BSA: 2.01m^2. Patient status: Inpatient. CARDIAC ANATOMY LEFT VENTRICLE: The cavity size was normal. Wall thickness was normal. Systolic function was normal. The estimated ejection fraction was 55%, in the range of 50% to 55%. Regional wall motion abnormalities cannot be excluded. AORTIC VALVE: Trileaflet; mildly thickened leaflets. Doppler: Transvalvular velocity was within the normal range. There was no stenosis. No regurgitation. Valve area: 1.83cm^2 (Vmax). Indexed valve area: 0.91cm^2/m^2 (Vmax). Mean gradient: 5mm Hg (S). AORTA: Aortic root: The aortic root was normal in size. MITRAL VALVE: Mildly calcified annulus. Doppler: Transvalvular velocity was within the normal range. There was no evidence for stenosis. Mild regurgitation. LEFT ATRIUM: The atrium was mildly to moderately dilated. RIGHT VENTRICLE: The cavity size was normal. Wall thickness was normal. PULMONIC VALVE: Doppler: Transvalvular velocity was within the normal range. There was no evidence for stenosis. No regurgitation. TRICUSPID VALVE: Structurally normal valve. Doppler: Transvalvular velocity was within the normal range. Mild-moderate regurgitation. PULMONARY ARTERY: The main pulmonary artery was normal-sized. Systolic pressure was within the normal range. RIGHT ATRIUM: The atrium was normal in size. PERICARDIUM: There was no pericardial effusion. SYSTEMIC VEINS: Inferior vena cava: The vessel was normal in size. Patient weight: 197.6lb _Ejection fraction:_ 65-75% _Fractional shortening:_ 32% up to 5Kg 5-11.5Kg 11.6-22.9Kg 23-45Kg 45-57Kg Aortic Root 7-13 <17 13-22 17-27 17-27 LA diam 6-13 <23 24-38 33-47 37-40 RVID 10-17 7-15 7-15 7-18 8-17 LVIDd 12-22 <32 24-38 33-47 37-40 LVPW 2-4 3-6 5-7 6-8 7-8 IVS 2-4 3-6 5-7 6-8 7-8 BASIC MEASUREMENTS ADULT NORMAL Left ventricle LV internal dimension, ED, chordal *39.6 mm 43-52 level, PLAX LV internal dimension, ES, chordal 30.5 mm 23-38 level, PLAX Fractional shortening, chordal level, *23 % >29 PLAX LV posterior wall thickness, ED 9.82 mm IVS/LVPW ratio, ED 1 <1.3 Ventricular septum Septal thickness, ED 9.82 mm Aortic valve Leaflet separation 16 mm 15-26 BASIC MEASUREMENTS ADULT NORMAL Aortic valve Leaflet separation 16 mm 15-26 Aorta Root diameter, ED 26 mm 20-37 Left atrium Anterior-posterior dimension, ES *48 mm 19-40 Anterior-posterior dimension index, ES *2.39 cm/m^2 <2.2 LA/aortic root ratio 1.85 DOPPLER MEASUREMENTS ADULT NORMAL Main pulmonary artery Pressure, S *32 mm Hg =30 Aortic valve Peak velocity, S 142 cm/s Mean velocity, S 105 cm/s VTI, S 26.6 cm Mean gradient, S 5 mm Hg Valve area, Vmax 1.83 cm^2 Valve area index, Vmax 0.91 cm^2/m^2 Mitral valve Peak E-wave velocity 64.7 cm/s Peak A-wave velocity 75 cm/s Deceleration time 183 ms 150-230 Peak E/A ratio 0.9 Maximal regurgitant velocity 296 cm/s Tricuspid valve Regurgitant peak velocity 232 cm/s Peak RV-RA gradient, S 22 mm Hg Maximal regurgitant velocity 232 cm/s Systemic veins Estimated CVP 10 mm Hg Right ventricle RV pressure, S *39 mm Hg <30 Pulmonic valve Peak velocity, S 133 cm/s LEGEND: Mean values are shown as u=mean value. Asterisk (*) morrow values outside specified normal range. Prepared and signed by Rajinder Trinidad [id number]
--- NOTE | 2016-09-17 01:41 | HHI.DS ---
Discharge Summary Admission Date Sep 14, 2016 at 01:14 Discharge Date: Sep 17, 2016 Admitting Diagnosis fall, head injury, distal radius ulna fracture, UTI (1) Fall ICD Code: W19.XXXA Diagnosis: Principal (2) Scalp laceration ICD Code: S01.01XA Diagnosis: Principal (3) Closed fracture distal radius and ulna ICD Code: S52.609A Diagnosis: Principal (4) Alcohol intoxication ICD Code: F10.129 Diagnosis: Principal (5) Renal insufficiency ICD Code: N28.9 Diagnosis: Secondary (6) UTI (urinary tract infection) ICD Code: N39.0 Diagnosis: Secondary Procedures ORIF- left radial fracture, close reduction left distal ulnar fracture Brief History - From Admission This is an 81-year-old female with a PMH of HTN and Hyperlipidemia who was brought to the ER by EMS after fall at home. Pt was apparently in the bathroom at her home and fell between the toilet and the wall, unable to get up. She pressed Medical Alert button at which time EMS was called. On their arrival, pt noted to have deformity of left wrist, s/p splint. On arrival to ER, BP 185/ 97, HR 97, O2 sat 97% on RA, Afebrile. CBC unremarkable except for platelets 138, previously 129 on 09/11/15. Creatinine 1.40, previously 1.49 on 05/31/16. Troponin negative. Alcohol 76. Urine Drug Screen negative. UA positive for UTI. CXR with no acute findings. CT Head with no acute findings. CT C-spine negative for fracture. X-ray Radius/Ulna w/ displaced transverse fractures of the distal radius ulna metaphyses. Noted to have scalp laceration, s/p repair in ER. Ortho consulted by ER physician for further evaluation. S/p Nitrofurantoin for UTI in ER. CBC/BMP: 09/15/16 0716 09/16/16 0407 Significant Findings Laboratory Tests Test 09/15/16 09/16/16 07:16 04:07 Red Blood Count 3.53 MIL/MM3 (4.00-5.30) Hematocrit 34.0 % (35.0-46.0) Platelet Count 121 TH/MM3 (150-450) Neutrophils (%) (Auto) 81.3 % (16.0-70.0) Lymphocytes (%) (Auto) 8.7 % (9.0-44.0) Monocytes (%) (Auto) 9.3 % (0.0-8.0) Lymphocytes # (Auto) 0.6 TH/MM3 (1.0-4.8) Chloride Level 109 MEQ/L (98-107) Creatinine 1.40 MG/DL 1.52 MG/DL (0.50-1.00) (0.50-1.00) Estimat Glomerular Filtration 36 ML/MIN (>89) 33 ML/MIN (>89) Rate Calcium Level 8.1 MG/DL 8.4 MG/DL (8.5-10.1) (8.5-10.1) Aspartate Amino Transf 46 U/L (15-37) (AST/SGOT) Alkaline Phosphatase 131 U/L (45-117) B-Type Natriuretic Peptide 320 PG/ML (0-100) Total Protein 6.0 GM/DL (6.4-8.2) Albumin 3.2 GM/DL (3.4-5.0) Potassium Level 3.2 MEQ/L (3.5-5.1) Random Glucose 107 MG/DL (74-106) Imaging Last Impressions Chest X-Ray 09/15/16 0000 Signed Impressions: Service Date/Time: Thursday, September 15, 2016 16:53 - CONCLUSION: 1. Minimal basilar dependent atelectasis. No effusion or pneumothorax. Zachary Ronquillo MD Wrist X-Ray 09/14/16 0000 Signed Impressions: Service Date/Time: Wednesday, September 14, 2016 10:32 - CONCLUSION: Fluoroscopic images during placement of T-shaped plate along the distal radius fixing fracture. Distal ulnar fracture slightly displaced. Monty Delgado MD Head CT 09/13/16 2240 Signed Impressions: Service Date/Time: Tuesday, September 13, 2016 23:15 - CONCLUSION: 1. No acute intracranial abnormality is identified. 2. Stable chronic changes include mild cerebral atrophy and left frontal periventricular white matter encephalomalacia Bret Roblero MD Radius/Ulna X-Ray 09/13/16 0000 Signed Impressions: Service Date/Time: Tuesday, September 13, 2016 23:31 - CONCLUSION: There are displaced transverse fractures of the distal radius and ulna metaphyses. Bret Roblero MD Cervical Spine CT 09/13/16 0000 Signed Impressions: Service Date/Time: Tuesday, September 13, 2016 23:15 - CONCLUSION: 1. No fracture or acute cervical spine abnormality is identified. 2. There is a small central disc protrusion of uncertain chronicity at C5-C6. It is not causing any significant canal stenosis. Bret Roblero MD PE at Discharge awake and alert, oriented x 3, speech clear anicteric no bruit lungs clear regular rhythm abdomen soft nontender LUE- S/S in place LE - no edema neuro exam- non focal Hospital Course 1. Fall: s/p mechanical fall at home in bathroom, no LOC, +head trauma. CT Head w/ no acute findings, CT C-Spine w/ no acute fracture, images reviewed by me. 2. S/P ORIF left radial fracture, close reduction left distal ulnar fracture 2/ 5 NWArtem SCHWARTZ, prn pain meds 3. Alcohol Intoxication: Alcohol level 76. Drinks 1 beer/day. IVF for hydration, Ativan prn. CIWA protocol 4. CKD: Chronic. Stable. Creatinine 1.40, previously 1.49 on 05/31/16. I Hypokalemia- replace with po KCL 5. UTI: - E coli on Ceftin course 6. Hypoxia with BLE edema. CXR negative with atelectasis. IS. Elevated BNP with preserved EF on ECHO. DVT Prophylaxis: SCD/Teds. Anticoagulation post op per Ortho. Pt Condition on Discharge: Stable Discharge Disposition: Discharge to SNF Discharge Time: > 30 minutes Discharge Instructions DIET: Follow Instructions for: Heart Healthy Diet Activities you can perform: Regular-No Restrictions Activities to Avoid: Driving Other Activity Instructions: emy COSTA Follow up Referrals: Orthopedics - 2 Weeks PCP Follow-up - 2-3 Days New Medications: Cefuroxime (Ceftin) 500 Mg Tab 500 MG PO BID Infection #7 Ref 0 TAB Hydrocodone-Acetaminophen ([place]) 5-325 mg Tab 1-2 TAB PO Q4H PRN PAIN #60 Ref 0 TAB Oxygen tank (Oxygen tank) 1 Ea Tank 2 LITER FER.CANULA CONTINUOUS Oxygen Concentrator Portable Gaseous 2 L/min via Nasal Cannula Continuous For 99 months HYPOXEMIA PREVENTION #1 CYLINDER Sennosides-Docusate Sodium (Senna Plus 8.6-50 mg) 1 Tab Tab 1 TAB PO BID Prevent Constipation #60 TAB Thiamine (Vitamin B-1) 100 Mg Tab 100 MG PO DAILY Alcohol Detox Days 30 TAB Continued Medications: Multiple Vitamins W/ Minerals (Multivitamin Adults) 1 Tab 1 TAB PO DAILY Nutritional Supplement Ref 0 TAB Aris Menezes MD Sep 17, 2016 01:41
== END 2016-09-16 14:00 | DRG 511 ==
LOC: NEPC 22:25 → NEDA 09-14 01:14 → N06B 09-14 07:57
PROVIDERS: ADMIT Internal Medicine; ATTEND Internal Medicine
PROC: 0PSLXZZ Reposition Left Ulna, External Approach (ICD-10-PCS; 2016-09-14)
PROC: 0HQ0XZZ Repair Scalp Skin, External Approach (ICD-10-PCS; 2016-09-14)
PROC: 0PSJ04Z Reposition Left Radius with Internal Fixation Device, Open Approach (ICD-10-PCS; principal; 2016-09-14 09:41)
DX: S52.502A Unspecified fracture of the lower end of left radius, initial encounter for closed fracture (principal); N39.0 Urinary tract infection, site not specified; S52.602A Unspecified fracture of lower end of left ulna, initial encounter for closed fracture; R31.9 Hematuria, unspecified; I12.9 Hypertensive chronic kidney disease with stage 1 through stage 4 chronic kidney disease, or unspecified chronic kidney disease; S01.01XA Laceration without foreign body of scalp, initial encounter; F10.120 Alcohol abuse with intoxication, uncomplicated; N18.9 Chronic kidney disease, unspecified; E78.5 Hyperlipidemia, unspecified; W19.XXXA Unspecified fall, initial encounter; Y93.89 Activity, other specified; Y92.091 Bathroom in other non-institutional residence as the place of occurrence of the external cause; B96.20 Unspecified Escherichia coli [E. coli] as the cause of diseases classified elsewhere; E87.6 Hypokalemia; R09.02 Hypoxemia
CPT/HCPCS: 12001; 70450; 71010; 72125; 73090; 73110; 76000; 80048; 80053; 80307; 80320; 81001; 82140; 82550; 83735; 83880; 84443; 84484; 85025; 85610; 87077; 87086; 87186; 90471; 90714; 93005; 93306; 94150; 94620; 96374; 96375; C1713; J0690; J0696; J1580; J1940; J2060; J2250; J2270; J2370; J2405; J3010; J3370; J7030; J7120